=== PATIENT | female | born 1955 | race Caucasian/White ===

== ENCOUNTER → 2018-12-20 | Outpatient (CLI) | payer OTHER ==
[~2018-12-20] MED LIST: FLEXERIL PO; HYZAAR; METFORMIN; NORCO 5-325 TA1 EACH PO
[2018-12-20 08:26] LABS: POTASSIUM 3.7 mmol/L (3.5-5.1)
== END ==
LOC: M.LAB 04:48
PROVIDERS: Anesthesiology
DX: E11.9 Type 2 diabetes mellitus without complications (principal); E87.6 Hypokalemia

== ENCOUNTER 2019-01-15 09:33 | Emergency (ER) | payer OTHER, MEDICAID ==
[~2019-01-15] VITALS: Ht 162.6 cm; Wt 81.7 kg
[~2019-01-15 09:33] MED LIST changes: +Glucophage; -HYZAAR; +Hyzaar; -METFORMIN
[2019-01-15] MEDS ORDERED: LISINOPRIL10 MG PO (09:47)
[2019-01-15] MEDS ORDERED: AMLODIPINE BESY10 MG PO (09:48)
[2019-01-15] MEDS ORDERED: GABAPENTIN 100100 MG PO (09:48)
[2019-01-15] MEDS ORDERED: KAPSPARGO SPRIN25 MG PO (09:49)
[2019-01-15] MEDS ORDERED: RISPERIDONE 00.25 M1 PO (09:49)
[2019-01-15 10:22] LABS: ABSOLUTE BASOPHILS 0.1 thou/uL (0.0-0.2); ABSOLUTE EOSINOPHILS 0.1 thou/uL (0.0-0.7); ABSOLUTE MONOCYTES 0.4 thou/uL (0.0-1.2); ABSOLUTE NEUTROPHILS 5.2 thou/uL (1.6-8.1); BASOPHILS 0.8 %; EOSINOPHILS 1.8 %; HEMATOCRIT 39.5 % (37.0-47.0); HEMOGLOBIN 13.8 gm/dL (12.0-15.0); LYMPHOCYTES 25.8 %; MCH 32.1 pg (26.0-34.0); MONOCYTES 4.6 %; MPV 7.3 fl. (7.2-11.1); NUCLEATED RBCS 0 /100WBC; PLATELET COUNT* 232 thou/uL (150-400); RBC 4.29 mil/uL (4.20-5.00); RDW-CV 13.8 % (10.5-14.5); WBC 7.8 thou/uL (4.0-11.0)
[2019-01-15 10:31] LABS: CALCIUM 8.5 mg/dL (8.5-10.1); CREATININE 0.9 mg/dL (0.6-1.3)
[2019-01-15 10:33] LABS: PROTIME 10.7 Seconds (9.20-11.50)
[2019-01-15 10:41] LABS: ALBUMIN 3.4 g/dL (3.4-5.0); TOTAL BILIRUBIN 0.3 mg/dL (<0.1-1.0); TOTAL PROTEIN 6.5 g/dL (6.4-8.2)
[2019-01-15 11:44] LABS: URINE BILIRUBIN NEGATIVE (Negative); URINE BLOOD NEGATIVE (Negative); URINE CLARITY CLEAR; URINE COLOR YELLOW; URINE GLUCOSE-RANDOM NEGATIVE (Negative); URINE KETONES NEGATIVE (Negative); URINE LEUKOCYTES-REFLEX NEGATIVE (Negative); URINE NITRITE-REFLEX NEGATIVE (Negative); URINE PROTEIN NEGATIVE (Negative); URINE SPECIFIC GRAVITY <= 1.005 (1.005-1.030); URINE UROBILINOGEN 0.2 E.U./dl (0.2-1.0)
[2019-01-15] MEDS ORDERED: K-DUR 20 MEQ T20 MEQ PO (13:54)
[2019-01-15 14:00] VITALS: BP 134/92
--- NOTE | 2019-01-15 16:21 | EKG ---
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1955 Requested By: Bill Jennings Order Number: [id number] MD: Carlos Nagel Measurements Intervals [place] Rate: 61 P: 127 AK: 209 QRS: 206 QRSD: 113 T: 98 QT: 444 QTc: 448 Interpretive Statements Right and left arm electrode reversal, interpretation assumes no reversal Sinus rhythm Probable left atrial enlargement Probable lateral infarct, age indeterminate No previous ECG available for comparison Electronically Signed On 01-15-2019 16:21:44 CDT by Carlos Nagel [email or web address] <ELECTRONICALLY SIGNED> By: Carlos Nagel MD, [facility] 01/15/19 1621 1 Carlos Nagel MD, FAC /EPI
== END 2019-01-15 14:00 | disposition home or self-care (01) ==
LOC: M.ERS 09:33
PROVIDERS: Emergency Medicine
DX: E87.6 Hypokalemia (principal); R42 Dizziness and giddiness; E11.40 Type 2 diabetes mellitus with diabetic neuropathy, unspecified; I10 Essential (primary) hypertension; F17.210 Nicotine dependence, cigarettes, uncomplicated; Z98.890 Other specified postprocedural states

== ENCOUNTER 2019-01-21 11:31 | Observation (INO) | payer OTHER, MEDICAID ==
[~2019-01-21] VITALS: Ht 162.6 cm; Wt 88.6 kg
[~2019-01-21 11:31] MED LIST changes: +AMLODIPINE BESY10 MG PO; +GABAPENTIN 100100 MG PO; +K-DUR 20 MEQ T20 MEQ PO; +KAPSPARGO SPRIN25 MG PO; +LISINOPRIL10 MG PO; +RISPERIDONE 00.25 M1 PO
[2019-01-21 11:46] VITALS: BP 144/87
[2019-01-21 12:19] LABS: URINE BILIRUBIN NEGATIVE (Negative); URINE BLOOD TRACE (Negative); URINE CLARITY CLEAR; URINE COLOR YELLOW; URINE GLUCOSE-RANDOM NEGATIVE (Negative); URINE KETONES NEGATIVE (Negative); URINE LEUKOCYTES-REFLEX NEGATIVE (Negative); URINE NITRITE-REFLEX NEGATIVE (Negative); URINE PROTEIN NEGATIVE (Negative); URINE SPECIFIC GRAVITY <= 1.005 (1.005-1.030); URINE UROBILINOGEN 0.2 E.U./dl (0.2-1.0)
[2019-01-21 12:20] LABS: ABSOLUTE BASOPHILS 0.1 thou/uL (0.0-0.2); ABSOLUTE EOSINOPHILS 0.1 thou/uL (0.0-0.7); ABSOLUTE LYMPHOCYTES 2.3 thou/uL (0.8-5.3); ABSOLUTE MONOCYTES 0.4 thou/uL (0.0-1.2); ABSOLUTE NEUTROPHILS 5.2 thou/uL (1.6-8.1); BASOPHILS 0.7 %; EOSINOPHILS 1.6 %; HEMATOCRIT 41.2 % (37.0-47.0); HEMOGLOBIN 14.3 gm/dL (12.0-15.0); LYMPHOCYTES 28.8 %; MCH 32.1 pg (26.0-34.0); MCHC 34.7 g/dL (28.0-37.0); MCV 92.7 fL (80.0-100.0); MONOCYTES 4.8 %; MPV 7.3 fl. (7.2-11.1); NUCLEATED RBCS 0 /100WBC; PLATELET COUNT* 260 thou/uL (150-400); POLYS 64.1 %; RBC 4.45 mil/uL (4.20-5.00); RDW-CV 13.9 % (10.5-14.5)
[2019-01-21 12:28] LABS: CALCIUM 9.3 mg/dL (8.5-10.1); CREATININE 0.8 mg/dL (0.6-1.3)
[2019-01-21 12:31] LABS: APTT 27.3 Seconds (25.0-31.3); PROTIME 10.2 Seconds (9.20-11.50)
--- NOTE | 2019-01-21 12:37 | NUR ---
DIMAS NOTIFIED UPON PT RETURN FROM CT. PT CONNECTED TO BP AND PULSE OX MONITOR
[2019-01-21 12:38] LABS: ALBUMIN 3.5 g/dL (3.4-5.0); TOTAL BILIRUBIN 0.3 mg/dL (<0.1-1.0); TOTAL PROTEIN 6.7 g/dL (6.4-8.2)
[2019-01-21] MEDS ORDERED: MEDROLDOSEPACK PO (13:25)
[2019-01-21] MEDS ORDERED: K-DUR 20 MEQ T20 MEQ PO (13:25)
[2019-01-21 13:34] VITALS: BP 125/83
[2019-01-21 16:04] VITALS: BP 125/83
--- NOTE | 2019-01-21 16:09 | EKG ---
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: [place] : 1955 Requested By: Eliecer Bravo Order Number: [id number] MD: Calin Alejandro Measurements Intervals [place] Rate: 79 P: 18 AK: 194 QRS: -30 QRSD: 104 T: 89 QT: 393 QTc: 451 Interpretive Statements Sinus rhythm Probable left atrial enlargement Left axis deviation Anterior infarct, age indeterminate Compared to ECG 01/15/2019 09:52:07 Myocardial infarct finding still present Electronically Signed On 01-21-2019 16:09:39 CDT by Calin Alejandro [email or web address] <ELECTRONICALLY SIGNED> By: Calin Alejandro MD, [facility] 01/21/19 1609 1148 1148 Calin Alejandro MD, [facility] /EPI
[2019-01-21] MEDS ORDERED: CLONAZEPAM 0.50.5 M1 PO (16:19)
[2019-01-21] MEDS ORDERED: OXYBUTYNIN 5 MG5 M2 PO (16:25)
[2019-01-21] MEDS ORDERED: PRAVACHOL40 MG PO (16:26)
--- NOTE | 2019-01-21 16:50 | 2DMMODE ---
[place] [address] 2 D/M-MODE ECHOCARDIOGRAM Name: MANUEL HIGGINS Room: [place] [address] ADM IN [facility]#: [id number] Admission: 01/21/19 Attend Phys: Jasmeet Worrell, Discharge: Date of : 55 Date of Service: 01/21/19 1650 Report #: [id number] THIS REPORT FOR: //name// APPROVED REPORT Study performed: 01/21/2019 14:25:28 EXAM: Comprehensive 2D, Doppler, and color-flow Echocardiogram Patient Location: In-Patient Room #: er Status: routine BSA: 1.87 HR: 52 bpm BP: 144/87 mmHg Rhythm: NSR Other Information Study Quality: Good Indications CVA/TIA Echo Enhancing Agent Indication: Rule out Shunt Agent(s) / Amount(s) Used: Agitated Saline 10 cc 2D Dimensions IVSd: 13.54 (7-11mm) LVOT Diam: 19.15 (18-24mm) LVDd: 41.20 mm PWd: 12.73 (7-11mm) Ascending Ao: 41.83 (22-36mm) LVDs: 25.25 (25-40mm) Aortic Root: 33.39 mm Volumes Left Atrial Volume (Systole) LA ESV Index: 41.70 mL/m2 Aortic Valve AoV Peak Myke.: 1.65 m/s AO Peak Gr.: 10.89 mmHg LVOT Max P.39 mmHg AO Mean Gr.: 4.62 mmHg LVOT Mean P.44 mmHg LVOT Max V: 1.36 m/s AO V2 VTI: 31.20 cm LVOT Mean V: 0.84 m/s CURTIS (VTI): 2.69 cm2 LVOT V1 VTI: 29.08 cm AI Pershing: 1.82 m/s2 [place] [address] 2 D/M-MODE ECHOCARDIOGRAM Name: MANUEL HIGGINS Room: [address] IN [facility].#: [id number] Admission: 01/21/19 Attend Phys: Jasmeet Worrell, Discharge: Date of : 55 Date of Service: 01/21/19 1650 Report #: [id number] AI PHT: 667.27 ms Mitral Valve E/A Ratio: 0.92 MV Decel. Time: 248.63 ms MV E Max Myke.: 0.78 m/s MV PHT: 72.10 ms MVA (PHT): 3.05 cm2 TDI E/Lateral E': 7.80 E/Medial E': 11.14 Medial E' Myke.: 0.07 m/s Lateral E' Myke.: 0.10 m/s Pulmonary Valve PV Peak Myke.: 1.24 m/s PV Peak Gr.: 6.19 mmHg Left Ventricle The left ventricle is normal size. There is normal LV segmental wall motion. Mild concentric left ventricular hypertrophy. Left ventricular systolic function is normal. The left ventricular ejection fraction is within the normal range. LVEF is 65-70%. Grade I - abnormal relaxation pattern. Right Ventricle The right ventricle is normal size. The right ventricular systolic function is normal. Atria Left atrium is mild to moderately dilated. Interatrial septum is intact without evidence of ASD or PFO. The right atrium size is normal. Aortic Valve The aortic valve is normal in structure. Mild aortic regurgitation. There is no aortic valvular stenosis. Mitral Valve The mitral valve is normal in structure. trace mitral regurgitation. No evidence of mitral valve stenosis. Tricuspid Valve The tricuspid valve is normal in structure. Unable to assess PA pressure. Trace tricuspid [place]urgitation[place] [address] 2 D/M-MODE ECHOCARDIOGRAM Name: MANUEL HIGGINS Room: [address] IN [facility]#: [id number] Admission: 01/21/19 Attend Phys: Jasmeet Worrell, Discharge: Date of : 55 Date of Service: 01/21/19 1650 Report #: [id number] The pulmonary valve is normal in structure. Trace pulmonic valvular regurgitation. Great Vessels Aortic root is mildly dilated. IVC is normal in size and collapses >50% with inspiration. Pericardium There is no pericardial effusion. <Conclusion> Mild concentric left ventricular hypertrophy. LVEF is 65-70%. Mild aortic regurgitation. Interatrial septum is intact without evidence of ASD or PFO. Left atrium is mild to moderately dilated. <ELECTRONICALLY SIGNED> By: Calin Alejandro MD, FACC 01/21/191649 49 49 Calin Alejandro MD, FACC /INF
[2019-01-21 16:51] VITALS: BP 135/89
--- NOTE | 2019-01-21 16:52 | NUR ---
PT ADMITTED TO ROOM 227 AT APPROXIMATELY 1600. TRACING SR ON MONITOR. VSS. PT C/O CHRONIC BACK PAIN. PT UP SBA WITH STEADY GAIT. NIH=0. PT ORIENTED TO ROOM AND CALL LIGHT. HOURLY ROUNDING IN PLACE FOR PT SAFETY. CLWR.
[2019-01-21 20:00] VITALS: BP 152/85
[2019-01-22 00:39] VITALS: BP 141/87
[2019-01-22 02:07] LABS: GLYCOHEMOGLOBIN (HGB A1C) 5.5 % (4.8-5.6)
[2019-01-22 04:00] VITALS: BP 146/95
[2019-01-22 05:56] LABS: CHOLESTEROL 179 mg/dL (<200); HDL CHOLESTEROL 56 mg/dL (>40); LDL CHOLESTEROL 100 mg/dL (<100); TC:HDL 3.2 Ratio (Not establshd); TRIGLYCERIDE 115 mg/dL (<150); VLDL 23 mg/dL (<40)
[2019-01-22 06:00] LABS: SERUM ASSESSMENT Clear
--- NOTE | 2019-01-22 06:21 | NUR ---
PT REPORTED DIZZINESS HAD SUBSIDED WHEN EDUCATED ON CLONAZEPAM NOT TO BE GIVEN R/T DIZZINESS. PT GIVEN HYDROCODONE FOR PAIN. PT REPORTED DIZZINESS UPON REASSESSMENT. MEDS GIVEN PER EMAR. PT PROGRESSING TOWARDS GOAL CALL LIGHT WITHIN REACH.
[2019-01-22 08:00] VITALS: BP 147/81
[2019-01-22 08:05] VITALS: BP 167/64
[2019-01-22 08:10] VITALS: BP 157/74
--- NOTE | 2019-01-22 12:17 | NUR ---
MET WITH PT TO DISCUSS HOME SITUATION/DC PLANNING. PT LIVES ALONE, HAS FAMILY SUPPORT. PT USES NO EQUIPMENT AND DENIES ANY NEEDS. SHE HOPES TO GO HOME SOON.
[2019-01-22] MEDS ORDERED: MEDROLDOSEPACK PO (13:51)
[2019-01-22] MEDS ORDERED: ASA81BEC PO (13:52)
[2019-01-22] MEDS ORDERED: MECLIZINE HCL25 M1 PO (13:53)
[2019-01-22 13:55] VITALS: BP 157/74
[2019-01-22] MEDS ORDERED: LIPITOR20 MG PO (14:00)
--- NOTE | 2019-01-25 19:25 | CON ---
[address] [address] CONSULTATION Name: MANUEL HIGGINS Room: [address] Konstantin Hawthorne#: [id number] Admission: 01/21/19 Attend Phys: Jasmeet Worrell MD Discharge: 01/22/19 Date of : 55 Report #: [id number] THIS REPORT FOR: //name// CC: Jasmeet Ramon DATE OF SERVICE: 01/21/2019 HISTORY OF PRESENT ILLNESS: This is a 63-year-old female patient who was seen by me for dizziness. This started spontaneously without any trauma. She was seen in the Emergency Room and they did an MRI on this patient, which was unremarkable. She continued to have dizziness. She indicated it is worse when she stands up. She does not have much dizziness in the morning, but then she has more dizziness. It is not much syncope. She never had this kind of symptom before. REVIEW OF SYSTEMS: Indicate that she says she is disabled because of back. She takes metformin for diabetes. She also takes gabapentin. She does have some history of neuropathy. She is not having any double vision. She denies any chest pain, respiratory difficulty, GI, , musculoskeletal, constitutional, dermatological, hematological, psychiatric, throat, allergic symptom associated with present symptomatology. PAST MEDICAL HISTORY: Negative for this kind of dizziness. FAMILY HISTORY: Unremarkable. SOCIAL HISTORY: She does not drink alcohol, but she smokes. PHYSICAL EXAMINATION: Her examination indicates she is alert. She is responsive. She can follow simple commands. Her speech, concentration, fund of knowledge and memory is at her baseline. Cranial nerve examination does indicate some nystagmus. She has symmetrical strength, sensation, reflexes and tone in all 4 extremities. Reflexes are diminished, but symmetrical. There is no carotid bruit. There is no thyroid mass. I could not look at the patient's fundus. Cardiac examinations appear unremarkable. No respiratory difficulty was noticed. Blood pressure is 135/89, respiration is 18, pulse is 69, temperature is 98.4. LABORATORY DATA: White count is 8. She had a CT today and an MRI in the past and that does not show any abnormality, which can explain the patient's symptoms. IMPRESSION AND PLAN: Dizziness, which is probably ENT etiology. She does have some nystagmus also. MRI sometime can miss stroke and we can repeat it, but the focus should be to evaluate and treat systemic [place] [address] CONSULTATION Name: MANUEL HIGGINS Room: [address] Konstantin Hawthorne#: [id number] Admission: 01/21/19 Attend Phys: Jasmeet Worrell MD Discharge: 01/22/19 Date of : 55 Report #: [id number] ENT. I will check for postural hypotension and we will just repeat the MRI and see what does that show and follow up with you tomorrow. <ELECTRONICALLY SIGNED> By: Librado Will MD 01/25/19 1925 12Librado Will MD /nt
== END 2019-01-22 15:05 | disposition home or self-care (01) ==
LOC: M.ERS 11:31 → M.2W 13:48 → M.TBA-ER 13:48 → M.2W 16:07
PROVIDERS: Emergency Medicine; ADMIT Internal Medicine
DX: R42 Dizziness and giddiness (principal); I10 Essential (primary) hypertension; E11.9 Type 2 diabetes mellitus without complications; F17.210 Nicotine dependence, cigarettes, uncomplicated; Z79.84 Long term (current) use of oral hypoglycemic drugs; Z79.899 Other long term (current) drug therapy; Z23 Encounter for immunization

== ENCOUNTER 2020-12-01 13:46 | Emergency (ER) | payer OTHER, MEDICAID ==
[~2020-12-01] VITALS: Ht 162.6 cm; Wt 81.7 kg
[~2020-12-01 13:46] MED LIST changes: +ASA81BEC PO; +CLONAZEPAM 0.50.5 M1 PO; +LIPITOR20 MG PO; +MECLIZINE HCL25 M1 PO; +MEDROLDOSEPACK PO; +OXYBUTYNIN 5 MG5 M2 PO; +PRAVACHOL40 MG PO
[2020-12-01] MEDS ORDERED: METFORMIN HCL500 M3 PO (13:52)
[2020-12-01 16:16] VITALS: BP 117/72
== END 2020-12-01 16:17 | disposition home or self-care (01) ==
LOC: M.ERS 13:46
DX: R60.1 Generalized edema (principal); E11.9 Type 2 diabetes mellitus without complications; I10 Essential (primary) hypertension; G62.9 Polyneuropathy, unspecified; F17.210 Nicotine dependence, cigarettes, uncomplicated; Z79.899 Other long term (current) drug therapy; Z79.82 Long term (current) use of aspirin; Z79.84 Long term (current) use of oral hypoglycemic drugs

== ENCOUNTER 2021-02-08 17:48 | Inpatient (IN) | payer OTHER, MEDICAID ==
[~2021-02-08] VITALS: Ht 162.6 cm; Wt 85.7 kg
[~2021-02-08 17:48] MED LIST changes: -KAPSPARGO SPRIN25 MG PO; +LOPRESSOR100 M1 PO; +METFORMIN HCL500 M3 PO
[2021-02-08 17:52] VITALS: BP 214/119
[2021-02-08 18:14] LABS: HEMATOCRIT 42.2 % (37.0-47.0); HEMOGLOBIN 14.3 gm/dL (12.0-15.0); MCH 33.3 pg (26.0-34.0); MCV 97.9 fL (80.0-100.0); MPV 7.6 fl. (7.2-11.1); NUCLEATED RBCS 0 /100WBC; PLATELET COUNT* 268 thou/uL (150-400); RBC 4.31 mil/uL (4.20-5.00); RDW-CV 13.8 % (10.5-14.5); WBC 11.1 thou/uL (4.0-11.0)
[2021-02-08 18:19] LABS: ANION GAP 10 mmol/L (7-16); BUN 61 mg/dL (7-18); CALCIUM 8.7 mg/dL (8.5-10.1); CHLORIDE 87 mmol/L (98-107); CO2 31 mmol/L (21-32); CREATININE 3.4 mg/dL (0.6-1.3); GLUCOSE 143 mg/dL (70-99); POTASSIUM 4.8 mmol/L (3.5-5.1); SODIUM 128 mmol/L (136-145)
[2021-02-08 18:22] LABS: APTT 25.4 Seconds (25.0-31.3); INR 1.2; PROTIME 12.1 Seconds (9.20-11.50)
[2021-02-08 18:30] LABS: ALBUMIN 2.9 g/dL (3.4-5.0); ALKALINE PHOSPHATASE 103 U/L (46-116); NT-PRO BRAIN NAT PEPTIDE > 35000 pg/mL (<300); SGOT 1577 U/L (15-37); SGPT 2526 U/L (30-65); TOTAL BILIRUBIN 0.7 mg/dL (<0.1-1.0); TOTAL PROTEIN 7.2 g/dL (6.4-8.2)
[2021-02-08 19:01] LABS: ABSOLUTE LYMPHOCYTES 1.1 thou/uL (0.8-5.3); ABSOLUTE MONOCYTES 1.1 thou/uL (0.0-1.2); ABSOLUTE NEUTROPHILS 8.9 thou/uL (1.6-8.1); PLATELET ESTIMATE ADEQUATE
[2021-02-08 20:14] LABS: BE -7.8 mmol/L (-2 to +3)
[2021-02-08 20:25] VITALS: BP 158/90
[2021-02-08 20:25] LABS: pH 7.128 (7.340-7.450)
[2021-02-08 20:26] LABS: PCO2 70.6 mmHg (35.0-45.0); PO2 247.4 mmHg (75.0-100.0)
[2021-02-08 20:29] LABS: URINE BLOOD 2+ (Negative); URINE CLARITY CLEAR; URINE COLOR YELLOW; URINE GLUCOSE-RANDOM NEGATIVE (Negative); URINE KETONES NEGATIVE (Negative); URINE LEUKOCYTES-REFLEX NEGATIVE (Negative); URINE NITRITE-REFLEX NEGATIVE (Negative); URINE PROTEIN 1+ (Negative); URINE SPECIFIC GRAVITY >= 1.030 (1.005-1.030); URINE UROBILINOGEN 0.2 E.U./dl (0.2-1.0)
--- NOTE | 2021-02-08 20:32 | NUR ---
CONTACTED DAUGHTER EMILY RODRIGUEZ [phone]; DAUGHTER AWARE PT IS CURRENTLY IN ICU CRITICAL STATUS; NURSE ANSWERED QUESTIONS AND GAVE ICU PHONE NUMBER; REPORTED TO PTS RN
[2021-02-08 20:34] LABS: ICTOTEST (BILI CONFIRMATORY) Negative (Negative); URINE BILIRUBIN 1+ (Negative)
[2021-02-08 20:35] LABS: CRYSTALS None Seen /LPF (None Seen); HYALINE CASTS >10 Many /LPF (None Seen); MUCUS None Seen strn/LPF (None Seen); SQUAMOUS 4-10 Moderate /LPF (0-3); URINE RBC 3-10 Few /HPF (0-2); URINE WBC-REFLEX 0-5 Rare /HPF (0-5)
[2021-02-08 20:36] LABS: BACTERIA-REFLEX 1-9 Few /HPF (None Seen)
[2021-02-08 21:00] VITALS: BP 136/63
[2021-02-08 22:01] VITALS: BP 105/70
[2021-02-08 22:22] LABS: BE -3.2 mmol/L (-2 to +3); PO2 81.4 mmHg (75.0-100.0)
[2021-02-08 22:24] LABS: PCO2 63.2 mmHg (35.0-45.0); pH 7.228 (7.340-7.450)
[2021-02-08 23:02] VITALS: BP 133/76
[2021-02-09] VITALS (33 sets, daily range): BP systolic 105–168; BP diastolic 50–87
[2021-02-09 04:22] LABS: ABSOLUTE LYMPHOCYTES 0.3 thou/uL (0.8-5.3); ABSOLUTE MONOCYTES 0.5 thou/uL (0.0-1.2); ABSOLUTE NEUTROPHILS 7.1 thou/uL (1.6-8.1); BASOPHILS 0.2 %; EOSINOPHILS 0.5 %; HEMATOCRIT 39.6 % (37.0-47.0); HEMOGLOBIN 13.5 gm/dL (12.0-15.0); MCV 96.9 fL (80.0-100.0); MONOCYTES 6.4 %; MPV 7.7 fl. (7.2-11.1); NUCLEATED RBCS 1 /100WBC; PLATELET COUNT* 220 thou/uL (150-400); POLYS 88.9 %; RBC 4.09 mil/uL (4.20-5.00); RDW-CV 13.3 % (10.5-14.5); WBC 7.9 thou/uL (4.0-11.0)
[2021-02-09 04:40] LABS: APTT 26.4 Seconds (25.0-31.3); INR 1.2
[2021-02-09 04:54] LABS: PHOSPHORUS* 3.3 mg/dL (2.5-4.9)
[2021-02-09 04:55] LABS: ALBUMIN 2.6 g/dL (3.4-5.0); CALCIUM 8.1 mg/dL (8.5-10.1); MAGNESIUM 2.5 mg/dL (1.8-2.4); TOTAL PROTEIN 6.2 g/dL (6.4-8.2)
[2021-02-09 04:57] LABS: CREATININE 2.1 mg/dL (0.6-1.3); POTASSIUM 3.6 mmol/L (3.5-5.1)
[2021-02-09 08:22] LABS: BE 6.1 mmol/L (-2 to +3); PCO2 37.7 mmHg (35.0-45.0); pH 7.509 (7.340-7.450)
[2021-02-09 08:26] LABS: PO2 166.4 mmHg (75.0-100.0)
--- NOTE | 2021-02-09 09:36 | NUR ---
PT SELF- EXTUBATED AT 0930 THIS AM. DOC CALLED TO BEDSIDE. DR LAY PAGED. PT PLACED ON BIPAP. SP02 >95% ON BIPAP.
[2021-02-09 10:50] LABS: BE 2.5 mmol/L (-2 to +3); pH 7.381 (7.340-7.450)
[2021-02-09 12:15] LABS: INFLUENZA A ANTIGEN Negative (Negative); INFLUENZA B ANTIGEN Negative (Negative)
[2021-02-09 14:19] LABS: CALCIUM 8.2 mg/dL (8.5-10.1); CREATININE 1.8 mg/dL (0.6-1.3); MAGNESIUM 2.7 mg/dL (1.8-2.4); POTASSIUM 3.8 mmol/L (3.5-5.1)
--- NOTE | 2021-02-09 15:17 | NUR ---
CM Assessment - CM unable to conduct assessment with pt due to pt being intubated. CM completed assessment with pt's son (Trevin Marlow - [phone]). This senior writer was informed that pt lives alone in a single story home that pt could return to upon discharge. Pt does not have a history of ADL or DME support. Pt does not have a history of HH, rehab, or SNF services. CM to continue to follow pt for discharge planning services.
--- NOTE | 2021-02-09 15:21 | NUR ---
CM Followup Pt extubated herself and was placed on a bipap. Pt not yet medically clear for discharge. CM to continue to follow pt for discharge planning services.
--- NOTE | 2021-02-09 17:16 | 2DMMODE ---
[place] [address] 2 D/M-MODE ECHOCARDIOGRAM Name: MANUEL HIGGINS Room: [address] ADM IN [facility]#: [id number] Admission: 02/08/21 Attend Phys: Chriss Huerta Discharge: Date of : 55 Date of Service: 02/09/21 1716 Report #: [id number] THIS REPORT FOR: cc: Mckenzie Ramon Maggie M. DO Liston, Michael J. MD [facility] ~ ADDENDUM APPROVED REPORT Study performed: 02/09/2021 10:45:27 EXAM: Comprehensive 2D, Doppler, and color-flow Echocardiogram Patient Location: In-Patient Room #: 002 Status: routine BSA: 1.93 HR: 67 bpm BP: 129/66 mmHg Rhythm: NSR Other Information Study Quality: Good Indications Dyspnea 2D Dimensions IVSd: 13.58 (7-11mm) LVOT Diam: 20.28 (18-24mm) LVDd: 45.54 mm PWd: 13.08 (7-11mm) Ascending Ao: 42.28 (22-36mm) LVDs: 24.47 (25-40mm) Aortic Root: 35.36 mm Volumes Left Atrial Volume (Systole) LA ESV Index: 36.40 mL/m2 Aortic Valve AoV Peak Myke.: 1.88 m/s AO Peak Gr.: 14.17 mmHg LVOT Max P.77 mmHg AO Mean Gr.: 7.36 mmHg LVOT Mean P.45 mmHg LVOT Max V: 1.39 m/s AO V2 VTI: 33.08 cm LVOT Mean V: 0.83 m/s CURTIS (VTI): 2.96 cm2 LVOT V1 VTI: 30.29 [place] [address] 2 D/M-MODE ECHOCARDIOGRAM Name: MANUEL HIGGINS Room: [address] IN [facility]#: [id number] Admission: 02/08/21 Attend Phys: Chriss Huerta Discharge: Date of : 55 Date of Service: 02/09/21 1716 Report #: [id number] Mitral Valve E/A Ratio: 0.70 MV Decel. Time: 271.42 ms MV E Max Myke.: 0.72 m/s MV PHT: 78.71 ms MVA (PHT): 2.79 cm2 TDI E/Lateral E': 9.00 E/Medial E': 7.20 Medial E' Myke.: 0.10 m/s Lateral E' Myke.: 0.08 m/s Pulmonary Valve PV Peak Myke.: 1.39 m/s PV Peak Gr.: 7.77 mmHg Tricuspid Valve RAP Estimate: 5.00 mmHg TR Peak Gr.: 20.00 mmHg RVSP: 35.00 mmHg PA Pressure: 35.00 mmHg Left Ventricle The left ventricle is normal size. There is normal LV segmental wall motion. Mild concentric left ventricular hypertrophy. Left ventricular systolic function is normal. LVEF is 60-65%. Transmitral Doppler flow pattern suggests impaired LV relaxation. Right Ventricle Right ventricle is mild to moderately dilated. The right ventricular systolic function is normal. Atria Left atrium is mildly dilated. Right atrium is mildly dilated. Aortic Valve Mild aortic valve sclerosis. Mild aortic regurgitation. There is no aortic valvular stenosis. Mitral Valve The mitral valve is normal in structure. Trace mitral regurgitation. No evidence of mitral valve stenosis. Tricuspid Valve The tricuspid valve is normal in structure. Mild tricuspid regurgitation. [place] [address] 2 D/M-MODE ECHOCARDIOGRAM Name: MANUEL HIGGINS Room: [address] IN [facility]#: [id number] Admission: 02/08/21 Attend Phys: Chriss Huerta Discharge: Date of : 55 Date of Service: 02/09/21 1716 Report #: [id number] Pulmonic Valve The pulmonary valve is normal in structure. Mild pulmonic regurgitation. Great Vessels The aortic root is normal in size. The ascending aorta is moderately dilated. (4.23 cm). IVC is dilated and collapses <50% with inspiration. Pericardium There is no pericardial effusion. <Conclusion> The left ventricle is normal size. Mild concentric left ventricular hypertrophy. Left ventricular systolic function is normal. LVEF is 60-65%. Transmitral Doppler flow pattern suggests impaired LV relaxation. There is normal LV segmental wall motion. Right ventricle is mild to moderately dilated. Left atrium is mildly dilated. Right atrium is mildly dilated. Mild aortic valve sclerosis. Mild aortic regurgitation. Trace mitral regurgitation. Mild tricuspid regurgitation. Mild pulmonary hypertension. IVC is dilated and collapses <50% with inspiration. The ascending aorta is moderately dilated. (4.23 cm). <ELECTRONICALLY SIGNED> By: Dami Matt MD, FACC 02/09/211715 15 15 Dami Matt MD, FACC /INF
--- NOTE | 2021-02-09 19:12 | NUR ---
PT SELF-EXYUBATED THIS AM. PLACED ON BIPAP @ 50% FOLLOWING. ABG FOLLOWING OK- PER DR LAY PUT ON 6L HFNC. SP02 MAINTAINED ON 6L HFNC. FOLLOWING EXTUBATION PT A0X1-2. PROVIDER NOTIFIED- NO NEW ORDERS AT THIS TIME. ECHO COMPLETED. US DUPLEX NEGATIVE. FLU/MRSA SWAB SENT. COVID PCR PENDING- PT REMAINS ON PRECAUTIONS.
[2021-02-10] VITALS (18 sets, daily range): BP systolic 109–217; BP diastolic 69–117
[2021-02-10 03:17] LABS: HEMATOCRIT 39.7 % (37.0-47.0); HEMOGLOBIN 13.2 gm/dL (12.0-15.0); MCH 32.7 pg (26.0-34.0); MCHC 33.1 g/dL (28.0-37.0); MCV 98.7 fL (80.0-100.0); MPV 7.3 fl. (7.2-11.1); RBC 4.03 mil/uL (4.20-5.00); RDW-CV 13.8 % (10.5-14.5); WBC 13.4 thou/uL (4.0-11.0)
[2021-02-10 03:35] LABS: CALCIUM 8.7 mg/dL (8.5-10.1); CREATININE 1.1 mg/dL (0.6-1.3); POTASSIUM 3.6 mmol/L (3.5-5.1)
--- NOTE | 2021-02-10 06:03 | NUR ---
Pt has not slept at all through this shift, she has been coughing, and when checked on, thinks that staff is going to kill her, she speaks loudly, and makes irrational statements.
--- NOTE | 2021-02-10 08:05 | EKG ---
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 : 1955 Requested By: [place] Order Number: [id number] MD: Dami Matt Measurements Intervals [place] Rate: 96 P: 45 [place]: 157 QRS: -46 QRSD: 146 T: 71 QT: 338 QTc: 428 Interpretive Statements Sinus rhythm Left atrial enlargement RBBB and LAFB Left ventricular hypertrophy Compared to ECG 01/21/2019 11:48:41 Left anterior fascicular block now present Right bundle-branch block now present Left ventricular hypertrophy now present Left-axis deviation no longer present Myocardial infarct finding no longer present Electronically Signed On 02-10-2021 8:05:01 CDT by Dami Matt [email or web address] <ELECTRONICALLY SIGNED> By: Dami Matt MD, [facility] 02/10/21804 48 48 Dami Matt MD, FAC /EPI
[2021-02-10 12:36] LABS: BE 5.1 mmol/L (-2 to +3); PO2 83.2 mmHg (75.0-100.0); pH 7.376 (7.340-7.450)
[2021-02-10 12:40] LABS: PCO2 55.6 mmHg (35.0-45.0)
--- NOTE | 2021-02-10 13:29 | NUR ---
PT PREVIOUSLY HAD 16 FR ORTIZ CATH- ORTIZ CONTIUNES TO LEAK. PT NEEDS CRITICAL I&O'S. ORTIZ WAS EXCHNAGED FOR A 18 FR.
[2021-02-10 14:27] LABS: MAGNESIUM 1.9 mg/dL (1.8-2.4); POTASSIUM 3.1 mmol/L (3.5-5.1)
[2021-02-10 14:33] LABS: CALCIUM 8.8 mg/dL (8.5-10.1)
--- NOTE | 2021-02-10 15:31 | NUR ---
Case Management Followup CM and providers met to discuss length of stay and discharge. Providers indicated pt is not yet medically clear for discharge as pt remains on 7 liters of oxygen. CM to continue to follow pt for discharge planning services.
--- NOTE | 2021-02-10 20:00 | CON ---
[address] [address] CONSULTATION Name: RONALDOMANUEL Room: [address] IN [facility]#: [id number] Admission: 02/08/21 Attend Phys: Trudy Hudson Discharge: Date of : 55 Report #: [id number] THIS REPORT FOR: cc: Mckenzie Ramon Maggie M. DO Pervez, Adeel MD ~ DATE OF CONSULTATION: 02/09/2021 Consult has been requested by Dr. Aguirre. INDICATIONS FOR CONSULTATION: Acute hypercarbic respiratory failure. HISTORY OF PRESENT ILLNESS: This is a 65-year-old female, past medical history includes a history of extensive smoking and COPD. The patient has been vaccinated for COVID-19. It is not known to me, which vaccine she received. The patient had not been heard for several days. Therefore, the landlord checked on her and found her to have altered mental status and also she was in respiratory distress. The patient also initially was combative and therefore required to be endotracheally intubated. On initial evaluation, the patient is noted to be in significant hypercarbic respiratory failure. First blood gas is already on the ventilator and at that time, she has a pH of 7.128 with a pCO2 of 71. She has been oxygenating well. Also, the patient was found to be in acute renal failure with a creatinine of 3.4. Note that her baseline creatinine is 0.8. The patient; however, was hemodynamically stable. She was kept on the ventilator overnight and was sedated with propofol. Still the patient self-extubated this morning, we placed her on a BiPAP. She is currently on a BiPAP of 18/6 and she appears to be oxygenating and ventilating adequately. In fact has fairly high tidal volumes, around 650-700 with 50% FiO2, her O2 saturation is 100%. She is fully awake at this time and is breathing in the low 20s. PAST MEDICAL HISTORY: COPD, type 2 diabetes, hypertension, neuropathy, 4 C-sections and vertigo. SOCIAL HISTORY: Extensive history of smoking, unable to quantify exactly at this time. No known history of heavy alcohol use or illegal drug use. CURRENT MEDICATIONS: List in [employer] reviewed. HOME MEDICATIONS: List also on [employer] reviewed. Note that this does not include any medications for COPD. FAMILY HISTORY: [place] [address] CONSULTATION Name: MANUEL HIGGINS Room: [address]#: [id number] Admission: 02/08/21 Attend Phys: Trudy Hudson Discharge: Date of : 55 Report #: [id number] ALLERGIES: No known drug allergies. IMMUNIZATION HISTORY: She was vaccinated for COVID, the vaccine received is not known to us at this time. PHYSICAL EXAMINATION: GENERAL: She is alert, awake and oriented. She is on a BiPAP of 18/6, is saturating 99-100%, 50% FiO2. VITAL SIGNS: Pulse was around 80 and blood pressure 120/80. She was breathing around 22-23. She is afebrile with a temperature of 36.9. HEENT: Head is normocephalic and atraumatic. There is no obvious throat erythema; however, throat examination is limited due to the presence of BiPAP. NECK: Does not show raised JVP, asymmetry, mass or lymph nodes. CHEST: Symmetrical expansion on inspection and palpation. On auscultation, breath sounds are bilaterally equal. I do not hear any added sounds. HEART: Regular. There is a soft systolic murmur. ABDOMEN: Soft and nontender. EXTREMITIES: Lower extremities, trace edema, somewhat more on the left than the right. No calf tenderness. SKIN: Dry and intact. NEUROLOGIC: Moves all extremities bilaterally equally and spontaneously with no focal deficit identified. LABORATORY DATA: The patient had a CT chest yesterday, also has had several chest x-rays. In summary, she appears to have atypical infiltrates. It will be possible for mild pulmonary vascular congestion to give this picture as well; however, it appears more likely to me that we are dealing with atypical infiltrates. She also had a CT of the abdomen and pelvis. This does not show any obstruction in the urinary tract, C-spine report also in [facility] reviewed. CT head report in [facility] reviewed. Lab work and several ABGs in [facility] reviewed. ASSESSMENT AND PLAN: 1. Acute hypercarbic/hypoxemic respiratory failure. The patient is doing well on BiPAP. At this time, I will suggest taking her off BiPAP and evaluating as to whether she could be on a nasal cannula while awake. For now, I do recommend keeping her on the BiPAP settings. I will switch her over to AVAPS mode while asleep. 2. COPD exacerbation. She is on Solu-Medrol as well as nebulized bronchodilators and I will continue the same. 3. Pulmonary infiltrates. There are atypical looking pulmonary infiltrates. I suspect that we are dealing with either a viral or atypical infection, fungal infection can also lead to this picture; however, it appears to be less likely. We will continue with azithromycin, linezolid as well as Zosyn, pending culture [address] [place] [address] CONSULTATION Name: MANUEL HIGGINS Room: [address] IN [facility].#: [id number] Admission: 02/08/21 Attend Phys: Trudy Hudson Discharge: Date of : 55 Report #: [id number] results, which were sent yesterday. We will await COVID-19 PCR; however, it is less likely that we are dealing with COVID, recommend sending an influenza swab. If it is negative, then I would send a viral respiratory panel. Several other serologies and cultures have been ordered. 4. Acute renal failure/elevated proBNP/mild fluid overload, requested an echo, which was just being performed now. She is on IV fluids at 100. As we are able to support her from a respiratory point of view, for now, continue the IV fluids. Her potassium is on the lower end of normal range. We will go ahead and give her some potassium. We will repeat labs in a couple of hours. If the creatinine is trending downwards, then I will be inclined to cut back on IV fluids. I held off on giving her more albumin now, I did give her albumin last night, but we will continue to assess. 5. Pedal edema, is only mild. It is more in the left. D-dimer, however, is elevated, recommend doing venous Dopplers as well. 6. Nutrition. We will plan on a swallow evaluation. She is able to come off the BiPAP. 7. History of diabetes/hyperglycemia, on insulin sliding scale. 8. Deep venous thrombosis prophylaxis, currently on heparin. If creatinine remains stable, then I will plan to switch this over to Lovenox to decrease the incident of HIT. 9. Gastrointestinal prophylaxis, Protonix. 10. Clostridium difficile prophylaxis. She is able to swallow, then I will give her Lactinex. The patient is critically ill at this time. Total time spent providing critical care to this patient today exceeds 45 minutes. <ELECTRONICALLY SIGNED> By: Casey Sanchez MD 02/10/211999 1012 1031Ajamie Sanchez MD /nt
[2021-02-10 22:06] LABS: MYCOPLASMA PNEUMONIA IgG 340 U/mL (0-99); MYCOPLASMA PNEUMONIA IgM <770 U/mL (0-769)
[2021-02-11] VITALS (20 sets, daily range): BP systolic 157–195; BP diastolic 75–115
[2021-02-11 02:49] LABS: ABSOLUTE LYMPHOCYTES 0.6 thou/uL (0.8-5.3); ABSOLUTE MONOCYTES 0.1 thou/uL (0.0-1.2); ABSOLUTE NEUTROPHILS 11.5 thou/uL (1.6-8.1); BASOPHILS 0.3 %; HEMATOCRIT 42.2 % (37.0-47.0); HEMOGLOBIN 14.1 gm/dL (12.0-15.0); LYMPHOCYTES 5.3 %; MCH 33.1 pg (26.0-34.0); MCHC 33.3 g/dL (28.0-37.0); MCV 99.3 fL (80.0-100.0); MONOCYTES 0.6 %; MPV 6.7 fl. (7.2-11.1); NUCLEATED RBCS 1 /100WBC; PLATELET COUNT* 210 thou/uL (150-400); POLYS 93.8 %; RBC 4.25 mil/uL (4.20-5.00); RDW-CV 13.8 % (10.5-14.5); WBC 12.3 thou/uL (4.0-11.0)
[2021-02-11 03:00] LABS: ALBUMIN 2.7 g/dL (3.4-5.0); CALCIUM 9.2 mg/dL (8.5-10.1); CREATININE 0.9 mg/dL (0.6-1.3); MAGNESIUM 2.3 mg/dL (1.8-2.4); TOTAL BILIRUBIN 0.6 mg/dL (<0.1-1.0); TOTAL PROTEIN 6.4 g/dL (6.4-8.2)
[2021-02-11 03:03] LABS: POTASSIUM 4.1 mmol/L (3.5-5.1)
--- NOTE | 2021-02-11 16:19 | NUR ---
Case Management Followup CM and providers met to discuss length of stay and discharge. Providers indicated pt is not yet medically clear for discharge. CM to continue to follow pt for discharge planning services. .
--- NOTE | 2021-02-11 17:21 | NUR ---
DR. LAY ROUNDED ABOUT 0930 ON THIS PT AND SHE WAS MADE TELE STATUS. PT CONFUSED AND RIPPED OUT 1 IV TODAY. NEW ONE PLACED UNDER US.
[2021-02-12] VITALS (11 sets, daily range): BP systolic 162–190; BP diastolic 87–101
[2021-02-12 03:01] LABS: HEMATOCRIT 44.6 % (37.0-47.0); HEMOGLOBIN 14.8 gm/dL (12.0-15.0); MCHC 33.3 g/dL (28.0-37.0); MCV 99.2 fL (80.0-100.0); MPV 7.3 fl. (7.2-11.1); NUCLEATED RBCS 0 /100WBC; PLATELET COUNT* 205 thou/uL (150-400); RBC 4.49 mil/uL (4.20-5.00); RDW-CV 13.7 % (10.5-14.5); WBC 12.2 thou/uL (4.0-11.0)
[2021-02-12 03:09] LABS: ALBUMIN 2.8 g/dL (3.4-5.0); CALCIUM 8.9 mg/dL (8.5-10.1); CREATININE 0.7 mg/dL (0.6-1.3); MAGNESIUM 1.7 mg/dL (1.8-2.4); POTASSIUM 3.4 mmol/L (3.5-5.1); TOTAL BILIRUBIN 0.8 mg/dL (<0.1-1.0); TOTAL PROTEIN 6.3 g/dL (6.4-8.2)
--- NOTE | 2021-02-12 03:50 | NUR ---
ASSUMED PT CARE AT APPROX. 1915. PT IS CONFUSED AND IMPULSIVE. PT HAS CLIMBED OUT OF BED MULTIPLE TIMES THROUGHOUT THE NIGHT. PT IS ANXIOUS AND AGITATED. MD MALONE WAS PAGED REGARDING PT BEHAVIOUR AND ORDERED ATIVAN 0.5MG PO X1 DOSE. PT CONTINUED IMPULSIVE BEHAVIOURS. PT REMAINS ANXIOUS AND AGITATED. RN HAS ATTEMPTED MULTIPLE TIMES TO PROVIDE THERAPEUTIC COMMUNICATION W/ PATIENT AND HAS SPENT MOST OF THE SHIFT WITH THIS PATIENT. MEDICATIONS HAVE BEEN ADMINISTERED PRESCRIBED. FALL PRECAUTIONS IN PLACE FOR SAFETY. PT REFUSES TO WEAR YELLOW NON-SKID SOCKS PT STATES THEY ARE WET, THEY ARE UNCOMFORTABLE, AND SHE DOESN'T WANT TO WEAR THEM. ASSESSMENTS COMPLETE CHARTED. CALL LIGHT WITHIN REACH. WILL CONT. TO MONITOR.
[2021-02-12 04:47] LABS: ABSOLUTE MONOCYTES 0.4 thou/uL (0.0-1.2); ABSOLUTE NEUTROPHILS 10.9 thou/uL (1.6-8.1)
[2021-02-12 04:48] LABS: PLATELET ESTIMATE ADEQUATE
[2021-02-12 05:07] LABS: GLYCOHEMOGLOBIN (HGB A1C) 6.1 % (4.8-5.6)
--- NOTE | 2021-02-12 18:30 | NUR ---
[address] PORTILLO ABOUT THE POSSIBLE TRANSFUSION. HE SAID TO REDRAW AN H&H AND IF IT IS LESS THAN 7, ORDER 1 UNIT PRBCS TO BE GIVEN WITH DIALYSIS. IF IT IS ABOVE 7, THEN NO BLOOD. TYPE AND SCREEN ALSO ORDERED IN CASE PT NEEDS BLOOD.
[2021-02-13] VITALS (21 sets, daily range): BP systolic 112–183; BP diastolic 68–95
--- NOTE | 2021-02-13 04:43 | NUR ---
PT CALMER RESTING 30 MINS AT A TIME, REMIANUS CONFUSED, REMAINS INPULSIVE. VSS.CHANGES IN ASSESSMENT .
[2021-02-13 14:26] LABS: CALCIUM 8.7 mg/dL (8.5-10.1); CREATININE 1.2 mg/dL (0.6-1.3); MAGNESIUM 2.2 mg/dL (1.8-2.4); POTASSIUM 3.8 mmol/L (3.5-5.1)
[2021-02-14] VITALS (9 sets, daily range): BP systolic 107–147; BP diastolic 72–85
[2021-02-14 03:40] LABS: ABSOLUTE BASOPHILS 0.1 thou/uL (0.0-0.2); ABSOLUTE LYMPHOCYTES 1.9 thou/uL (0.8-5.3); ABSOLUTE MONOCYTES 0.6 thou/uL (0.0-1.2); ABSOLUTE NEUTROPHILS 14.6 thou/uL (1.6-8.1); BASOPHILS 0.3 %; EOSINOPHILS 0.1 %; HEMATOCRIT 45.7 % (37.0-47.0); HEMOGLOBIN 15.2 gm/dL (12.0-15.0); LYMPHOCYTES 10.8 %; MCHC 33.4 g/dL (28.0-37.0); MCV 98.8 fL (80.0-100.0); MONOCYTES 3.4 %; MPV 7.7 fl. (7.2-11.1); NUCLEATED RBCS 0 /100WBC; PLATELET COUNT* 156 thou/uL (150-400); POLYS 85.4 %; RBC 4.62 mil/uL (4.20-5.00); RDW-CV 13.9 % (10.5-14.5); WBC 17.1 thou/uL (4.0-11.0)
[2021-02-14 03:53] LABS: ALBUMIN 2.3 g/dL (3.4-5.0); CALCIUM 8.1 mg/dL (8.5-10.1); POTASSIUM 3.6 mmol/L (3.5-5.1); TOTAL BILIRUBIN 0.6 mg/dL (<0.1-1.0); TOTAL PROTEIN 5.3 g/dL (6.4-8.2)
--- NOTE | 2021-02-14 14:51 | NUR ---
ICU Rounds: Continued abx, IV lasix and steroids. Patient currently on 4L NC. Therapies to see patient today to help determine dc dispo. Possible SNF vs. ARU. Patient is currently tele status. Per patient will not be medically stable for another 48 hours. CM to continue to follow for safe dc planning
--- NOTE | 2021-02-14 16:05 | NUR ---
ASSUMED PT CARE AT APPROX. 1445. PT IS A/OX4. VSS. SR ON CHIEF OF PEDIATRIC UROLOGY. PT IS ON 4LNC. PT DENIES C/O PAIN AT THE TIME OF ASSESSMENT. REPORT GIVEN TO JOSE MCHUGH. PT LEFT ICU UNIT AT APPROX. 1555 VIA W/C. ALL BELONGINGS SENT WITH PT.
[2021-02-15 00:13] VITALS: BP 123/75
[2021-02-15 04:00] VITALS: BP 145/83
--- NOTE | 2021-02-15 04:11 | NUR ---
ASSUMED CARE OF PT AT 1900. PT IS ALERT AND ORIENTED. VSS. PERMELODIE. PT IS NPO FOR ABD US. PT IS IN SINUS RYTHM ON THE TELEMETRY. PT IS RESTING COMFORTABLY IN BED. RESPIRATIONS ARE EVEN AND NONLABORED. WILL CONTINUE TO MONITOR PT.
[2021-02-15 04:38] LABS: HEMATOCRIT 44.8 % (37.0-47.0); HEMOGLOBIN 14.8 gm/dL (12.0-15.0); MCH 32.5 pg (26.0-34.0); MCV 98.4 fL (80.0-100.0); RBC 4.55 mil/uL (4.20-5.00); WBC 14.3 thou/uL (4.0-11.0)
[2021-02-15 05:08] LABS: ALBUMIN 2.3 g/dL (3.4-5.0); CALCIUM 8.2 mg/dL (8.5-10.1); CREATININE 0.9 mg/dL (0.6-1.3); MAGNESIUM 1.6 mg/dL (1.8-2.4); TOTAL BILIRUBIN 0.8 mg/dL (<0.1-1.0)
--- NOTE | 2021-02-15 07:20 | NUR ---
CHNAGE OF SHIFT REPORT GIVEN PATIENT SEEN AT BEDSIDE, IN BED ASLEEP ASSUMED APTIENT CARE
[2021-02-15 08:00] VITALS: BP 137/78
[2021-02-15 10:08] LABS: HEPATITIS B SURFACE AG Negative (Negative)
[2021-02-15 12:00] VITALS: BP 101/58
--- NOTE | 2021-02-15 13:28 | NUR ---
Nutrition: Pt admitted with COPD exacerbation. Seen for LOS. H/o COPD, DM with neuropathy, HTN. She is on Chopped diet. She said her appetite is normal. I gave her a menu. She denied SOA upon eating. She is hungry. She stated her usual wt is 190#. BG is elevated 147-291, alb 2.3, prealb 24. Consider low nutrition risk at this time. GOALS: tight BG control.
--- NOTE | 2021-02-15 15:11 | NUR ---
PLAN OF CARE: PHYSICIAN INFORMS THAT THE PT IS NOT MEDICALLY STABLE. PLAN FOR INPT ARU VS SNF. PT REMAINS ON 4L O2. CM WILL REMAIN AVAILABLE TO ASSIST AND FOLLOW NEEDED.
[2021-02-15 16:00] VITALS: BP 118/78
[2021-02-15 20:00] VITALS: BP 117/69
[2021-02-16] VITALS (10 sets, daily range): BP systolic 116–140; BP diastolic 62–84
[2021-02-16 04:46] LABS: HEMOGLOBIN 14.9 gm/dL (12.0-15.0); MCH 32.8 pg (26.0-34.0); MCHC 33.3 g/dL (28.0-37.0); MCV 98.6 fL (80.0-100.0); MPV 8.3 fl. (7.2-11.1); RBC 4.56 mil/uL (4.20-5.00); RDW-CV 14.2 % (10.5-14.5); WBC 11.6 thou/uL (4.0-11.0)
[2021-02-16 05:18] LABS: ALBUMIN 2.3 g/dL (3.4-5.0); CALCIUM 8.1 mg/dL (8.5-10.1); CREATININE 0.8 mg/dL (0.6-1.3); POTASSIUM 4.1 mmol/L (3.5-5.1); TOTAL BILIRUBIN 0.6 mg/dL (<0.1-1.0)
[2021-02-16] MEDS ORDERED: CEFDINIR300 MG PO (13:22)
[2021-02-16] MEDS ORDERED: PREDNISONE 10 M10 MG PO (13:22)
== END 2021-02-16 17:15 | disposition home health service (06) | DRG 208 ==
LOC: M.ERS 17:48 → M.ICU 18:44 → M.TBA-ER 18:44 → M.ICU 20:05 → M.2W 02-14 16:09
PROVIDERS: Family Medicine; Internal Medicine; Internal Medicine Critical Care Medicine; ADMIT Internal Medicine; ATTEND Internal Medicine
PROC: 5A1935Z Respiratory Ventilation, Less than 24 Consecutive Hours (ICD-10-PCS; principal; 2021-02-08)
PROC: 0BH17EZ Insertion of Endotracheal Airway into Trachea, Via Natural or Artificial Opening (ICD-10-PCS; principal; 2021-02-08)
PROC: 5A09357 Assistance with Respiratory Ventilation, Less than 24 Consecutive Hours, Continuous Positive Airway Pressure (ICD-10-PCS; 2021-02-08)
PROC: 5A0945A Assistance with Respiratory Ventilation, 24-96 Consecutive Hours, High Flow/Velocity Cannula (ICD-10-PCS; 2021-02-10)
PROC: 5A0935A Assistance with Respiratory Ventilation, Less than 24 Consecutive Hours, High Flow/Velocity Cannula (ICD-10-PCS; 2021-02-13)
DX: J15.6 Pneumonia due to other Gram-negative bacteria (principal); J96.01 Acute respiratory failure with hypoxia; G93.41 Metabolic encephalopathy; N17.0 Acute kidney failure with tubular necrosis; J96.02 Acute respiratory failure with hypercapnia; J44.1 Chronic obstructive pulmonary disease with (acute) exacerbation; J44.0 Chronic obstructive pulmonary disease with (acute) lower respiratory infection; I10 Essential (primary) hypertension; E11.40 Type 2 diabetes mellitus with diabetic neuropathy, unspecified; J32.4 Chronic pansinusitis; Z20.822 Contact with and (suspected) exposure to COVID-19; Z82.49 Family history of ischemic heart disease and other diseases of the circulatory system; Z79.82 Long term (current) use of aspirin; Z79.899 Other long term (current) drug therapy; Z28.21 Immunization not carried out because of patient refusal